=== PATIENT | female | born 1955 | race Caucasian/White ===

== ENCOUNTER → 2022-04-05 | Outpatient (CLI) | payer MEDICARE, SELFPAY ==
--- NOTE | 2022-04-05 08:55 | RAD_ITS ---
STUDY: X-RAY - ESOPHAGUS (BARIUM SWALLOW) WITH FLUOROSCOPY REASON FOR EXAM: Female, 66 years old. DYSPHAGIA TECHNIQUE: 14 view(s) of the esophagus were obtained following swallowing of barium. FLUOROSCOPY TIME (if supplied): (36 seconds) minutes/seconds COMPARISON: None. FINDINGS: There is no demonstrated esophageal foreign body. There is no demonstrated stricture or mucosal abnormality. Normal gastroesophageal junction, without a demonstrated hiatal hernia. The patient ingested a 12 mm tablet of barium without difficulty. There is atherosclerotic calcification of the aortic arch with tortuosity of the descending aorta. Normal visualized pulmonary parenchyma. Normal visualized osseous structures of the thorax. RAD/Esophagus Dual Contrast IMPRESSION: Normal plain film x-ray examination (barium swallow) of the esophagus. Electronically Signed: Ryan Powers MD at 9:38 EDT ,
== END | disposition home or self-care (01) ==
LOC: RAD 08:41
PROVIDERS: PCP Student in an Organized Health Care Education/Training Program; Referring Provider Otolaryngology; Visit Provider Otolaryngology
DX: R13.10 Dysphagia, unspecified (principal)
CPT/HCPCS: 74221

== ENCOUNTER 2022-09-30 09:50 | Day surgery (SDC) | payer MEDICARE, SELFPAY ==
--- NOTE | 2022-09-20 11:50 | RAD_ITS ---
EXAM: XR CHEST, 2 VIEWS CLINICAL INDICATION: CHEST PAIN TECHNIQUE: Frontal and lateral views of the chest. This report was created using [employer] report generation technology. COMPARISON: None. FINDINGS: LUNGS AND PLEURAL SPACES: Mild pulmonary hyperinflation with mild flattening of the hemidiaphragms. No suspicious infiltrates. No pneumothorax. No effusion. HEART: Unremarkable. Cardiac silhouette not enlarged. MEDIASTINUM: Central airways and mediastinal contour are unremarkable. BONES/JOINTS: Unremarkable. SOFT TISSUES: Unremarkable. RAD/Chest PA and Lateral IMPRESSION: No acute findings in the chest. Electronically Signed: Kai Diop MD at 12:03 EST ,
[2022-09-20 13:40] LABS: Absolute Lymphocyte Count 1.75 X10^3/uL (0.83-4.51); Absolute Neutrophil Count 2.8 X10^3/uL (2.0-7.7); Basophil# 0.05 X10^3/uL; Basophil% 0.9 % (0-1); Eosinophil# 0.26 X10^3/uL; Eosinophils% 4.9 % (0-5); Hematocrit 42.6 % (37-47); Hemoglobin 14.5 g/dL (12.0-15.0); Lymphocyte # 1.75 X10^3/ul (0.83-4.51); Lymphocyte % 32.8 % (19-41); Mean Corpuscular Hgb 29.8 pg (27.0-32.0); Mean Corpuscular Volume 87.7 fL (81-99); Mean Platelet Vol. 10.6 fl (6.2-12.0); Monocyte# 0.42 X10^3/uL; Monocyte% 7.9 % (0-10); NRBC Flagged by Analyzer 0 % (0-5); Neutrophil # 2.84 X10^3/uL (2.7-7.7); Neutrophil % 53.3 % (47-70); Platelet Count 267 K/mm3 (150-450); RBC Distribution Width CV 12.9 % (11.6-14.6); RBC Distribution Width SD 41.3 fl (35.1-43.9); Red Blood Count 4.86 M/mm3 (4.2-5.4); White Blood Count 5.3 K/mm3 (4.4-11.0)
[2022-09-20 14:08] LABS: Anion Gap 9 (5-15); BUN 14 mg/dL (7-18); BUN/Creat Ratio 16.8 RATIO (10-20); Calcium,Total 9.4 mg/dL (8.5-10.1); Chloride 105 mmol/L (98-107); Creatinine, Serum 0.83 mg/dL (0.55-1.02); EST Glomerular Filtration Rate 72 mL/min (>60); Est Glom Filt Rate - Afr Amer 87 mL/min (>60); Glucose 91 mg/dL (74-106); Sodium Level 140 mmol/L (136-145)
--- NOTE | 2022-09-28 14:03 | HP.PCM_ITS ---
History and Physical Pleasant 67-year-old lady with no previous cardiac history who had been having palpitations and presented in January of this year after developing COVID.? She feels that her heart rate was running around 100 bpm.? In February she had a physical exam with her primary physician and she was diagnosed with having a supraventricular tachyarrhythmia with heart rate of approximately 161 bpm.? She was given adenosine which converted her to sinus rhythm.? She was then prescribed metoprolol 25 mg twice daily but she had difficulty taking this.? She subsequently saw a gate attendant who put her on metoprolol succinate and put her on tartrate as needed.? She had several episodes of tachycardia between March and April because she was not taking the metoprolol.? During that time she had tests including a chest x-ray which was noted to be normal, an echocardiogram which demonstrated an ejection fraction of 60 to 65% with no wall motion abnormalities, and a Stress test where she exercised to 10.1 metabolic equivalents which was negative for ischemia and no SVT was noted.? She also had a coronary calcium score performed in June 2022 which demonstrated total score of 23 and a lipid profile which demonstrated total cholesterol 193, LDL of 93, HDL 69 and TSH which was normal.? Coronary lab tests were also noted to be normal.? She also lost approximately 10 pounds in weight continue to walk 2 miles she stopped all caffeine and alcohol and she drank 64 ounces of water a day.? On June 16 she presented to the emergency room again with rapid heart rate was noted to be in a narrow complex tachycardia with a rate of 210 bpm.? On June 26 she had a low heart rate of 37 to 44 bpm during sleep and in late June she had her medications adjusted.? She says that she has been doing well apart from the fact that she has difficulty taking pills because it gets stuck in her throat.? She was seen in our office and is agreeable to proceed with an ablation for her SVT. [facility] Medical History? Age related cataract Chest pain CKD (chronic kidney disease), stage II COVID-19 (~01/13/22) Diverticula of colon Dizziness Dry eye syndrome of bilateral lacrimal glands Dyslipidemia Epiretinal membrane (ERM) of both eyes Fatty liver Gallbladder sludge History of HPV infection Hypertriglyceridemia Hypomagnesemia Liver lesion Osteopenia Palpable thyroid Palpitations Renal cyst SVT (supraventricular tachycardia) Vitamin A deficiency Surgical History? History of surgical procedure on eye proper using laser History of tonsillectomy and adenoidectomy Family History? Mother Breast cancerSister Ulcerative colitisAunt Aortic valve stenosisUncle Myocardial infarction CVA (cerebral vascular accident)Uncle Myocardial infarction CVA (cerebral vascular accident)Uncle Myocardial infarction Social History? Smoking Status:? Never smoker alcohol intake:? former substance use type:? does not use caffeine:? No ROS Const Const: Negative for fatigue, weakness, headache(s), frequent falls, difficulty sleeping or excessive sweating Eyes Eyes: Negative for loss of peripheral vision, transient loss of vision, blurry vision, double vision or tunnel vision ENT ENT: Positive for other (difficulty swallowing pills d/t dry throat); Negative for headache(s), dizziness, Nosebleed/epistaxis or balance problems Cardio Chest Pain: No Palpitations: No Edema: None Muscle aches with walking: None Resp Respiratory: Negative for SOB with activity, SOB at rest, SOB orthopnea\SOB lying down, Cough or paroxysmal nocturnal dyspnea GI GI: Negative nausea, vomiting, heartburn or black,tarry stools : Negative for hematuria Musc Musc: Negative for muscle aches/ myalgia, muscle weakness, joint pain or balance problems Skin Skin: Negative non-healing lesions, rash or unusual bruising Neuro Neuro: Negative for dizziness, lightheadedness, near syncope, syncope, orthostatic symptoms, frequent falls, headache(s), weakness, confusion, memory loss, blurry vision, double vision, vertigo or lack of coordination Silviano Hematologic/Lymphatic: Negative for easy bleeding or easy bruising Endo Endo: Negative for fatigue, excessive sweating, flushing or increased thirst/drinking Psych Psych: Negative for anxiety or depression Allergy Allergy/Immunology: Negative for hives and Negative for rash Cardiology Exam Const Appearance: cooperative, healthy appearing, no acute distress, well developed an d well groomed Nutritional Appearance: average body habitus and well nourished Orientation: alert, awake and oriented x3 Head Head: normal to inspection, normocephalic and atraumatic Ears: hearing grossly normal bilaterally and external ears normal Nose: external nose normal, nares normal, nasal mucous membranes and turbinates normal, septum normal and no nasal discharge Face and Sinus: face symmetric Mouth: oral mucosae normal, tongue normal, oropharynx normal and moist mucous membranes Teeth and gingiva: dentition normal Throat: posterior oropharynx normal, tonsils normal and uvula midline Eyes General: appearance normal, both eyes and all related structures Eyelids: eyelids normal Conjunctivae: conjunctivae normal Pupils: PERRL, normal by confrontation and accommodation normal EOM: EOM intact bilaterally Neck Neck: normal visual inspection, trachea midline and no JVD JVD: +5 Carotids: normal carotid upstroke and bounding pulses Chest Chest inspection: normal inspection of the chest, symmetric chest movement and normal respiratory effort Auscultation: Bilateral: Clear to Auscultation Cardio Palpation: normal PMI Rate: regular rate Rhythm: regular rhythm Heart sounds: S1 normal, S2 normal and normal, physiologic split S2; Negative rub, gallop or murmur GI GI: normal to inspection, soft, no hepatosplenomegaly and bowel sounds present Neuro General: patient alert, patient awake, patient oriented x3, gait normal, moves all extremities and no focal sensory deficit Skin Skin: no rashes or lesions noted Extremities Pulses: Normal: Right Femoral Pulse, Left Femoral Pulse, Right Dorsalis Pedis Pulse, Left Dorsalis Pedis Pulse, Right Posterior Tibial Pulse, Left Posterior Tibial Pulse, Right Radial Pulse and Left Radial Pulse Lower Extremity Edema: None: Bilateral Musculoskel Musculoskeletal: No joint tenderness Psych Psychological: normal affect Supplemental Information CORONARY CALCIUM SCORE 07/05/2022 IMPRESSION: 1. Coronary artery calcium score of? 23*. ? *Coronary artery calcium scoring may be helpful in predicting the risk for future coronary heart disease events.? According to the [place] Clinical Expert Consensus Task Force, such testing provides important prognostic information in patients with more than one coronary heart disease risk factor. The coronary artery calcium score correlates with the annual risk of a non-fatal myocardial infarction or coronary heart disease . ? Coronary artery score? Annual Risk ? 0-99 ? 0.4% 100-399? 1.3% >400? 2.4% ECHOCARDIOGRAM? 03/30/2022 Summary: 1. Left ventricle: The cavity size is normal. Basal Septal Left Ventricular Hypertrophy Systolic function is normal. The estimated ejection fraction is 60- 65%. Wall motion is normal; there are no regional wall motion abnormalities. Unable to assess diastolic function. 2. Ventricular septum: Thickness is increased. 3. Mitral valve: The annulus is moderately calcified. EXERCISE TREADMILL STRESS TEST 03/30/2022 Exercise stress test EKG Patient was stressed according to Warren protocol for [7:15] min achieving maximum [10.10] METs. Resting heart rate [117] bpm nancie to maximum heart rate of [169] bpm, [110]% of maximal age predicted heart rate. Resting blood pressure of [178/76] mmHg nancie to maximum blood pressure of [218/62] mmHg. The test was stopped due to target heart rate achieved. Patient complains of [shortness of breath]. Symptoms resolved . 2 minutes after stress blood pressure was [158/78] and heart rate was [137]. Baseline EKG shows normal sinus rhythm. During the stress test no ischemic ST depressions were noted no arrhythmia was noted. Impression: Patient had negative for ischemia exercise stress EKG test Good exercise capacity. BP was not well controlled during test; Good HR/BP recovery ECHOCARDIOGRAM? 08/18/2017 Summary:? 1. Left ventricle: The cavity size is normal. Wall thickness is normal. Systolic function is normal. The estimated ejection fraction is 60-65%. Wall motion is normal; there are no regional wall motion abnormalities. Normal diastolic function.? 2. Right ventricle: Systolic function is normal.? 3. Aortic valve: There is trivial regurgitation.? 4. Mitral valve: The annulus is mildly calcified. The leaflets are mildly thickened. Impressions:? 1. Normal study.? 2. No evidence of significant valve disease. NM MYOCARDIAL SPECT STRESS/REST? 08/18/2017 IMPRESSION: 1. No evidence of inducible ischemia or prior myocardial infarction. 2. Normal LV size, wall motion and left ventricular systolic function, LVEF 73%. 3. Soft tissue/breast attenuation artifact noted. 4. As compared to the last study report of 11/10/2012, no significant changes were noted. Baseline EKG shows normal sinus rhythm with rightward axis. Borderline EKG. Patient walked on the treadmill per Warren protocol for a total of 8 minutes achieving a maximum workload of 10.10 METs. The resting heart rate of 75 beats per minute, nancie to a maximum heart rate of 187 beats per minute, which is 119% of maximal age predicted heart rate. The resting blood pressure of 174/84 mmHg, nancie to a maximum blood pressure of 212/80 mmHg. Patient had no exercise induced chest pain. Stress EKG revealed sinus tachycardia with occasional PVCs and a short 8-beat run of SVT. IMPRESSION: 1. Negative exercise EKG stress test for ischemia. 2. Average functional capacity. 3. No anginal chest pain associated with exercise. 4. 8-beat run of supraventricular tachycardia noted during exercise while the patient was asymptomatic. 5. Occasional premature ventricular contractions noted. 6. Baseline hypertension noted. 7. Normal heart rate recovery. 8. Nuclear images will be reviewed and reported separately ? Assessment & Plan Assessment/Plan (1) SVT (supraventricular tachycardia): PLAN: History exam and EKG were reviewed.? There is clear evidence of a narrow complex tachycardia with a heart rate noted of approximately 162 bpm which looks like a long RP tachycardia.?Pt will undergo an SVT ablation and follow up as scheduled in the office.
[2022-09-29 09:53] VITALS: BMI 29.9
--- NOTE | 2022-09-30 13:46 | ELECTROSTU_ITS ---
Electrophysiology Report Electrophysiology Report Left-sided the patient presents for evaluation of recurrent narrow complex tachycardia. She has held her beta-brie. After informed consent she was brought to the catheterization laboratory at [facility] and the right groin was prepped and draped in usual sterile manner. Intermittent doses of Versed fentanyl and 1 1% lidocaine were used. A 12 [place] Tri-Port sheath was inserted into the right femoral vein using the Seldinger technique. A 4 Sammarinese catheter was placed in the high right atrium, a 5 Sammarinese catheter was placed in the hiss and a 4 Sammarinese catheter was placed in the right ventricle. Programmed stimulation was performed in the baseline state as well as during Isuprel infusion. The results are: KS interval 165 QRS 85 QT 330. Sinus cycle length 650 AH 7 0 HV 5 5 maximum SNRT 1000 corrected SNRT 350 AV block cycle length 290 VA block cycle length of 420. With atrial pacing there was induction of a supraventricular tachycardia the VA interval at the hiss was 235 the cycle length was 390 there was a low high sequence but the time interval between the hiss AA in the high right atrial a recording was quite short. the tachycardia terminates with a v. it was too short in duration to do any diagnostic maneuvers. There is decremental retrograde and antegrade conduction and it was concentric retrograde conduction. The AV node effective refractory period at a drive cycle length of 500 was 290 ms again the tachycardia was inducible with A1/A2 and it seemed to require a long AH interval. Testing was then repeated on 3 mcg of Isuprel sinus cycle length was 430 AH 80 HV 45 AV block cycle length 220 VA block cycle length 260 there was decremental retrograde conduction. Mapping and pacing was performed from the distal, mid and proximal coronary sinus confirming concentric retrograde activation. The AV node effective refractory period was less than [address] cycle length of 400. The tachycardia was induced primarily with atrial overdrive burst pacing this cycle length was 300 ms; the VA interval at the HIS was 145 ms. During sustained tachycardia and Isuprel repeated bouts of burst pacing from the right ventricle were attempted to entrain the tachycardia but were unsuccessful. Furthermore with ventricular pacing there was no alteration of the tachycardia cycle length. And with one induction, there was great variability in the VA interval until finally settling into at the consistent VA relationship. All of these features are consistent with a diagnosis being an atrial tachycardia. Induction was not dependent upon AV node features. Mapping of the coronary sinus and of the right atrium suggests that the origin is in the left atrium. No ablation was performed. The patient will consider medical therapy or repeat ablation with detailed mapping and transseptal access to the left atrium
== END 2022-09-30 16:52 | disposition home or self-care (01) ==
PROVIDERS: Internal Medicine Cardiovascular Disease; PCP Student in an Organized Health Care Education/Training Program; Referring Provider Internal Medicine Cardiovascular Disease; Visit Provider Internal Medicine Cardiovascular Disease
DX: I47.1 Supraventricular tachycardia (principal); R00.2 Palpitations; H04.123 Dry eye syndrome of bilateral lacrimal glands; I34.81 Nonrheumatic mitral (valve) annulus calcification; K57.30 Diverticulosis of large intestine without perforation or abscess without bleeding; K76.0 Fatty (change of) liver, not elsewhere classified; I49.3 Ventricular premature depolarization; M85.80 Other specified disorders of bone density and structure, unspecified site; E78.5 Hyperlipidemia, unspecified; H25.9 Unspecified age-related cataract; E83.42 Hypomagnesemia; Z82.3 Family history of stroke; N18.2 Chronic kidney disease, stage 2 (mild); E50.9 Vitamin A deficiency, unspecified; Z86.16 Personal history of COVID-19
CPT/HCPCS: 36415; 71046; 80048; 85025; 93620; 93621; 93623; 99152; 99153; C1730; C1894; J7040; J2405

== ENCOUNTER 2023-07-06 09:02 | Outpatient (CLI) | payer MEDICARE, SELFPAY | END 2023-07-06 23:59 | disposition home or self-care (01) | LOC: PSN 09:04 | PROVIDERS: PCP Student in an Organized Health Care Education/Training Program; Referring Provider Internal Medicine Cardiovascular Disease; Visit Provider Internal Medicine Cardiovascular Disease | DX: I47.10 Supraventricular tachycardia, unspecified (principal); R00.1 Bradycardia, unspecified; I49.1 Atrial premature depolarization | CPT/HCPCS: 93225; 93226 ==